=== PATIENT | male | born 1960 | race Caucasian/White ===

== ENCOUNTER 2016-10-19 10:06 | Emergency (ER) | payer OTHER ==
[2016-10-19 11:05] LABS: HEMOGLOBIN 15.6 gm/dl (14.0-17.5); RED BLOOD COUNT 5.14 M/UL (4.20-5.50); WHITE BLOOD COUNT 6.7 K/UL (4.5-11.0)
[2016-10-19 11:20] LABS: BUN/CREATININE RATIO 25 (0-10)
== END 2016-10-19 15:32 | disposition home or self-care (01) ==
LOC: ER1 10:06
PROVIDERS: Physician Assistant
DX: R10.11 Right upper quadrant pain (principal); E11.9 Type 2 diabetes mellitus without complications
CPT/HCPCS: 36415; 76705; 80053; 81001; 82150; 83690; 84484; 85025; 93005; 96360; 96361; 99284

== ENCOUNTER → 2016-10-20 | Outpatient (CLI) | payer OTHER | LOC: KOH-I 08:00 | DX: M54.5 Low back pain (principal); M51.37 Other intervertebral disc degeneration, lumbosacral region | CPT/HCPCS: 72148 ==

== ENCOUNTER 2021-08-23 15:03 | Emergency (ER) | payer OTHER ==
[~2021-08-23 15:03] MED LIST: GLUCOPHAGE500 MG PO; MUCINEX DM ER1 EAC1 PO; VENTOLIN HFA 66.7 GM INH
== END 2021-08-23 18:01 | disposition home or self-care (01) ==
LOC: ER1 15:03
DX: U07.1 COVID-19 (principal); J06.9 Acute upper respiratory infection, unspecified; E11.9 Type 2 diabetes mellitus without complications
CPT/HCPCS: 99283; U0002